=== PATIENT | female | born 1990 | race Caucasian/White ===

== ENCOUNTER 2023-09-22 14:52 | Emergency (ER) | payer BC ==
[~2023-09-22] VITALS: Ht 165.1 cm; Wt 82.6 kg
[2023-09-22 15:05] VITALS: BP 135/77; PULSE 90; RESP 17; TEMP 97.6; O2SAT 98
[2023-09-22 16:44] LABS: APPEARANCE,URINE CLEAR (CLEAR); BILIRUBIN,URINE NEGATIVE (NEGATIVE); BLOOD, URINE NEGATIVE (NEGATIVE); COLOR,URINE YELLOW (YELLOW); LEUKOCYTE ESTERASE ,URINE NEGATIVE (NEGATIVE); NITRITE, URINE NEGATIVE (NEGATIVE); PROTEIN,URINE NEGATIVE (NEGATIVE); UGLUCOSE NEGATIVE (NEGATIVE); UROBILINOGEN,URINE 0.2 EU/dL (0.2 - 1)
[2023-09-22] MEDS ORDERED: MORPHINE SULFATE 4 MG/ML SYR IM ONE (16:50)
[2023-09-22] MEDS ORDERED: IBUP-2213 PO (16:53)
[2023-09-22] MEDS ORDERED: ACET-8905 PO (16:53)
[2023-09-22 17:09] VITALS: BP 135/77; PULSE 90; RESP 17; TEMP 97.6; O2SAT 98
== END 2023-09-22 17:09 | disposition home or self-care (01) ==
LOC: MED 14:52
DX: R51.9 Headache, unspecified (principal); Z20.822 Contact with and (suspected) exposure to COVID-19; Z79.899 Other long term (current) drug therapy; Z90.49 Acquired absence of other specified parts of digestive tract
CPT/HCPCS: 70450; 81003; 81025; 87426; 96372; 99285; J2270